=== PATIENT | female | born 1955 | race Caucasian/White ===

== ENCOUNTER → 2017-08-24 | Day surgery (SDC) | payer OTHER ==
[~2017-08-24] MED LIST: CALTRATE PO; CENTRUM SILVER1 EAC3 PO; FENTANYL CITRATE/PF 100MCG/2 ML INJ ONE; MELOXICAM PO; MIDAZOLAM HCL 2 MG/2 ML VIAL ONE; OMEGA FISH OIL PO; OR PHACO EYE KIT ONE; PREOP PHACO EYE KIT ONE; SINGULAIR10 MG PO; VITAMIN C PO
== END | disposition home or self-care (01) ==
LOC: OR 08:57
PROVIDERS: ATTEND Ophthalmology
DX: H25.11 Age-related nuclear cataract, right eye (principal); J30.2 Other seasonal allergic rhinitis; R53.1 Weakness; Z88.3 Allergy status to other anti-infective agents
CPT/HCPCS: 66984; J2250; V2788

== ENCOUNTER → 2017-09-07 | Day surgery (SDC) | payer OTHER ==
[~2017-09-07] MED LIST changes: +CITRUCEL500 MG PO; +MELOXICAM7.5 MG PO; +TOBRAMYCIN/DEXAMETHASONE(OPTH) 3.5 GM TUBE ONE
== END | disposition home or self-care (01) ==
LOC: OR 12:45
PROVIDERS: ATTEND Ophthalmology
DX: H25.12 Age-related nuclear cataract, left eye (principal); J30.2 Other seasonal allergic rhinitis; I83.90 Asymptomatic varicose veins of unspecified lower extremity; Z88.3 Allergy status to other anti-infective agents
CPT/HCPCS: 66984; J2250

== ENCOUNTER 2021-01-06 09:57 | Outpatient (RCR) | payer OTHER ==
[~2021-01-06 09:57] MED LIST changes: -FENTANYL CITRATE/PF 100MCG/2 ML INJ ONE; -MIDAZOLAM HCL 2 MG/2 ML VIAL ONE; -OR PHACO EYE KIT ONE; -PREOP PHACO EYE KIT ONE; -TOBRAMYCIN/DEXAMETHASONE(OPTH) 3.5 GM TUBE ONE
== END 2021-01-07 ==
LOC: PT 09:57
PROVIDERS: ATTEND Specialist
DX: M75.82 Other shoulder lesions, left shoulder (principal)

== ENCOUNTER 2021-01-31 09:54 | Outpatient (RCR) | payer MEDICARE | END 2021-02-07 | LOC: PT 09:54 | PROVIDERS: ATTEND Podiatrist Foot Surgery | DX: M75.02 Adhesive capsulitis of left shoulder (principal); M75.82 Other shoulder lesions, left shoulder; M25.512 Pain in left shoulder; M25.612 Stiffness of left shoulder, not elsewhere classified; M62.81 Muscle weakness (generalized) ==

== ENCOUNTER → 2021-02-07 | Outpatient (RCR) | payer MEDICARE, OTHER | LOC: PT 01-08 10:20 | PROVIDERS: ATTEND Specialist | DX: M75.82 Other shoulder lesions, left shoulder (principal) | CPT/HCPCS: 97139 ==

== ENCOUNTER 2021-03-07 10:00 | Outpatient (RCR) | payer MEDICARE | END 2021-03-10 | LOC: PT 10:00 | PROVIDERS: ATTEND Podiatrist Foot Surgery | DX: M75.82 Other shoulder lesions, left shoulder (principal) | CPT/HCPCS: 97139 ==

== ENCOUNTER 2021-03-17 11:00 | Outpatient (RCR) | payer MEDICARE | END 2021-04-07 | LOC: PT 11:00 | PROVIDERS: ATTEND Podiatrist Foot Surgery | DX: M75.82 Other shoulder lesions, left shoulder (principal) | CPT/HCPCS: 97139 ==

== ENCOUNTER 2022-06-05 10:00 | Outpatient (RCR) | payer MEDICARE | END 2022-06-07 | LOC: PT 10:00 | PROVIDERS: ATTEND Orthopaedic Surgery | DX: M17.12 Unilateral primary osteoarthritis, left knee (principal) ==

== ENCOUNTER → 2022-07-08 | Outpatient (RCR) | payer MEDICARE | LOC: PT 06-08 07:58 | PROVIDERS: ATTEND Orthopaedic Surgery | DX: M17.12 Unilateral primary osteoarthritis, left knee (principal); Z96.652 Presence of left artificial knee joint; M25.562 Pain in left knee; M62.81 Muscle weakness (generalized); M25.662 Stiffness of left knee, not elsewhere classified; R26.2 Difficulty in walking, not elsewhere classified ==

== ENCOUNTER 2022-08-05 09:58 | Outpatient (RCR) | payer MEDICARE | END 2022-08-07 | LOC: PT 09:58 | PROVIDERS: ATTEND Orthopaedic Surgery | DX: M17.12 Unilateral primary osteoarthritis, left knee (principal) ==